=== PATIENT | female | born 1945 | race Caucasian/White ===

== ENCOUNTER 2023-04-14 08:23 | Outpatient (CLI) | payer OTHER | END 2023-04-14 08:24 | disposition home or self-care (01) | LOC: BICCT 08:23 | PROVIDERS: ATTEND Urology | DX: N39.46 Mixed incontinence (principal); K57.30 Diverticulosis of large intestine without perforation or abscess without bleeding; Z85.51 Personal history of malignant neoplasm of bladder; Z90.49 Acquired absence of other specified parts of digestive tract; Z90.710 Acquired absence of both cervix and uterus | CPT/HCPCS: 74178 ==